=== PATIENT | male | born 1955 | race Caucasian/White ===

== ENCOUNTER 2018-11-19 06:05 | Day surgery (SDC) | payer BC ==
[~2018-11-19] VITALS: Ht 185.4 cm; Wt 97.5 kg
--- NOTE | ~2018-11-19 | OP ---
PATIENT NAME: RIZWAN GOLDSMITH MEDICAL RECORD: [id number] :55 LOCATION:D.OPS ADMISSION DATE: SURGEON: JOSE ARMANDO FLORENTINO DPM DATE OF OPERATION: 11/19/2018 PREOPERATIVE DIAGNOSES: 1. HAV, right foot. 2. Instability, right first met cuneiform joint. 3. Plantar plate rupture, right second MPJ. 4. Hammertoe deformity, right second digit. 5. Hammertoe deformity, right third digit. POSTOPERATIVE DIAGNOSES: 1. HAV, right foot. 2. Instability, right first met cuneiform joint. 3. Plantar plate rupture, right second MPJ. 4. Hammertoe deformity, right second digit. 5. Hammertoe deformity, right third digit. PROCEDURES: 1. Summers bunionectomy, right foot. 2. First met cuneiform joint fusion, right foot. 3. Nelida osteotomy, right second metatarsal. 4. Plantar plate repair, right second MPJ. 5. PIPJ fusion, right second digit. 6. Flexor tenotomy, right third digit. ANESTHESIA: Preoperative popliteal block per the anesthesia department as well as intraoperative general anesthesia. HEMOSTASIS: Right thigh tourniquet at 350 mmHg. PREOPERATIVE DETAILS: The patient was taken to the OR and placed on the operating table in a supine position. This was followed by induction of general anesthesia. The right extremity was then prepped and draped in the usual aseptic technique, followed by exsanguination of extremity and inflation of tourniquet. PROCEDURE #1: Right Summers bunionectomy: A 15-blade was used to create an incision from the dorsal aspect of the medial cuneiform distally to the base of proximal phalanx of the hallux. The incision was deepened down through subcutaneous tissue being sure to avoid all vital structures. Dissection was carried down to the first MPJ, where an inverted L capsulotomy was performed. The medial capsular flap was reflected and the head of the first metatarsal was delivered. A sagittal saw was used to resect the medial eminence. Attention was then directed to the first interspace, where a lateral release was performed. PROCEDURE #2: First met cuneiform joint fusion, right foot: Dissection was carried down to the periosteum and the first met cuneiform joint was delivered. Sagittal saw was used to resect the joint. Temporary fixation was placed. Excellent alignment was noted. A 5-hole plate with one screw crossing the fusion site was then placed across the fusion site with excellent fixation as well as alignment of the first ray as verified by the C-arm. The wound was flushed. The deep tissue, periosteum as well as the first MPJ capsule were OPERATIVE REPORT [id number] AGUSRIZWAN closed with 2-0 Vicryl, the subcutaneous tissue with 4-0 Rapide, and the skin was closed with 4-0 Rapide in a subcuticular technique, followed by Dermabond. PROCEDURE #3: Nelida osteotomy, right second metatarsal: A 15-blade was used to create an incision from the dorsal aspect of the second metatarsal midshaft distally across the second MPJ upon top of the PIPJ of the second digit. The incision was deepened down through subcutaneous tissue to the extensor longus tendon, which was transected in a Z fashion exposing the second MPJ. A linear capsulotomy was made. There was noted to be significant dorsiflexion and contracture and dislocation of the second digit on top of the second metatarsal shaft. Following freeing the joint up utilizing a McGlamry scoop elevator, we were able to put the digit back in articulation. There was noted to be considerable damage of the second metatarsal head. The cartilaginous surface had no subchondral plate and was soft, essentially was able to be removed with just a flick of a [place]brook elevator. It was removed. The shape being of the head of the second metatarsal was performed with a rongeur. At this time, a Nelida osteotomy was created from dorsal distal, plantar proximal in the second metatarsal head. The capital fragment was moved proximally and temporarily fixated with a K-wire. A second K-wire was drilled in the middle of the second proximal phalanx digit. A wire retractor was then placed over and the joint was distracted. It was noted upon initial inspection there was absolutely nothing left of the plantar plate. We were looking at the flexor tendons, which were very evident in the wound. At this time, it was deemed necessary to pass FiberWire through the flexor tendons to try and get some plantar purchase of the second digit. We went ahead and used a pigtail to pass FiberWire through the flexor tendons. Made 2 small drill holes in the base of proximal phalanx of the second digit, passed the FiberWire up through the drill holes, put the Nelida osteotomy back in proper alignment and used 2 pop-off up screws to fixate the Nelida osteotomy. We then continued the plantar plate repair, which is procedure #4. Procedure #4: Plantar plate repair, right second MPJ: Following fixation of the Nelida osteotomy, the FiberWire that was passed up through the proximal phalanx was then tied in surgeon's knots holding the second digit in a plantarflexed position. Following the repair, there was noted to be excellent alignment of the second digit at this point with the joint being congruous. PROCEDURE #5: PIPJ fusion, right second digit: The incision as described in #3 was utilized. The extensor longus tendon was freed from the dorsal aspect of the PIPJ exposing the joint. A sagittal saw was used to resect both the head of the proximal phalanx to the base of middle phalanx. A small drill hole was made in each and a Hammertoe graft was placed first in the proximal phalanx and then the middle phalanx was placed on top of the graft and compressed the fusion site noting excellent alignment as well as rigid fixation. The wound was flushed. At this time, the second MPJ capsule was repaired with 2-0 Vicryl. The extensor longus tendon was reapproximated with 4-0 Rapide. The subcutaneous tissue was approximated with 4-0 Rapide and the skin was closed with 4-0 Rapide in a subcuticular technique, followed by Dermabond. PROCEDURE #6: Flexor tenotomy, right third digit: A 15-blade was used to create a small percutaneous incision at the plantar base of the third digit. The flexure longus tendon was palpated and incised allowing dorsiflexion of the third digit. Wound was flushed and it was closed with simple interrupted technique with 4-0 Rapide, followed by Dermabond. Adaptic, 4 x 4, and Conform were used to dress the wounds, followed by application of modified Mcintyre OPERATIVE REPORT [id number] RIZWAN GOLDSMITH compression dressing. Tourniquet was deflated. POSTOPERATIVE DETAILS: The patient tolerated the procedure well and left the OR with vital signs stable and vascular status at preoperative levels. The patient was transported to recovery per anesthesia in stable condition. TRANSINT:[id number] Voice Confirmation ID: [id number] DOCUMENT ID: [id number] JOSE ARMANDO FLORENTINO DPM CC: [id number] DICTATION DATE: 11/19/18 1120 SAW SUPERINTENDENT: 11/19/[address] [facility] 11/19/18 [place] [id number] [place] [id number]
[~2018-11-19 06:05] MED LIST: FOLIC ACID1 MG PO; HYDROCODON-ACE1 EA10 PO; LOTREL 5/10 MG1 CAP PO; METHOTREXATE2.5 MG PO; NITROSTAT0.4 MG SL; PREDNISONE20 MG PO; PROSCAR5 MG PO; TRAZODONE HCL150 MG PO; ULTRAM50 MG PO; VOLTAREN75 MG PO; XELJANZ5 MG PO
[2018-11-19 06:37] LABS: HEMATOCRIT 33.3 % (42.0-54.0); MCH 26.3 pg (26.0-34.0); MCV 87.6 fL (80.0-100.0); MEAN PLATELET VOLUME 8.5 fL (7.4-10.4); RBC 3.8 10x6/uL (4.20-6.10); RDW 20.6 % (11.5-14.5)
[2018-11-19 07:15] LABS: CALC OSMOLALITY 275 mosm/kg (275-300); CALCIUM 8.7 mg/dL (8.5-10.1); CARBON DIOXIDE 28.6 mmol/L (21.0-32.0); CHLORIDE - SERUM 103 mmol/L (98-107); CREATININE - SERUM 0.9 mg/dL (0.6-1.3); GLUCOSE 92 mg/dL (74-106); SODIUM 138 mmol/L (136-145); UREA NITROGEN 13 mg/dL (7-18); eGFR NON AFRICAN AMERICAN > 90 mL/min (90-120)
[2018-11-19 07:24] VITALS: BP 118/78; Ht 185.4 cm; Wt 97.5 kg
--- NOTE | 2018-11-19 12:43 | NUR ---
1240 [place] DIET SERVED.
== END 2018-11-19 13:35 | disposition home or self-care (01) ==
LOC: D.OPS 06:05 → D.PAN 10:00 → D.OPS 10:00
PROVIDERS: Anesthesiology; ATTEND Podiatrist
DX: M20.11 Hallux valgus (acquired), right foot (principal); M25.374 Other instability, right foot; S93.621A Sprain of tarsometatarsal ligament of right foot, initial encounter; X58.XXXA Exposure to other specified factors, initial encounter; M20.41 Other hammer toe(s) (acquired), right foot; Z01.812 Encounter for preprocedural laboratory examination